=== PATIENT | female | born 1950 | race Caucasian/White ===

== ENCOUNTER → 2017-07-29 16:09 | Outpatient (CLI) | payer MEDICARE, OTHER, SELFPAY ==
--- NOTE | 2017-07-29 16:12 | MRI_ITS ---
STUDY: MRI LEFT REARFOOT WITHOUT CONTRAST REASON FOR EXAM: Female, 67 years old. Heel spur, plantar fasciitis. No known injury. Pain in the plantar aspect of the heel since January 2017 TECHNIQUE: Standardized fat and water weighted pulse sequences were obtained in all 3 orthogonal planes. COMPARISON: None. FINDINGS: Normal subcutis adipose space. Normal posterior tibialis tendon. Normal flexor digitorum longus tendon. Normal flexor hallucis longus tendon. Normal peroneus longus and brevis tendons. Normal tibialis anterior tendon. Normal extensor hallucis longus tendon. Normal extensor digitorum longus tendons. Normal Achilles tendon and teno-osseous insertion. There is thickening and soft tissue edema surrounding the central cord of the plantar fascia at the calcaneal insertion, consistent with plantar fasciitis (sagittal STIR series 4 image 9). No tear is noted. There is a plantar calcaneal spur with cancellous marrow edema consistent with a marrow stress phenomena. Normal intrinsic muscles of the rearfoot. Normal distal tibiofibular syndesmotic ligamentous complex. Normal lateral ligamentous complex. Normal subtalar ligaments and sinus tarsi. Normal deltoid ligamentous complexes. Normal plantar calcaneonavicular (spring) ligament. Normal tibiotalar articulation. Normal talar dome. Normal subtalar articulations. Normal talonavicular articulation. Normal calcaneocuboid articulation. Normal navicular-cuneiform articulations. MRI/Lower Ext/No Jt/w/o IMPRESSION: Findings are consistent with plantar fasciitis involving the central cord of the plantar fascia with associated reactive bone marrow edema in the plantar aspect of the calcaneus and heel spur Electronically Signed: Rodrigo Valenzuela MD, FACR at 7:55 EST , Service support ,
== END ==
PROVIDERS: Family Provider Family Medicine; PCP Family Medicine; Visit Provider Podiatrist
DX: M72.2 Plantar fascial fibromatosis (principal); M77.32 Calcaneal spur, left foot; M79.672 Pain in left foot
CPT/HCPCS: 73718

== ENCOUNTER → 2018-02-18 10:58 | Outpatient (CLI) | payer MEDICARE, OTHER, SELFPAY ==
[2018-02-18 12:04] LABS: Absolute Lymphocyte Count 1.42 X10^3/ul (0.83-4.51); Absolute Neutrophil Count 2.5 X10^3/uL (2.0-7.7); Basophil# 0.02 X10^3/uL; Basophil% 0.4 % (0-1); Eosinophils% 2.2 % (0-5); Hematocrit 43.8 % (37-47); Hemoglobin 15.3 g/dl (12.0-15.0); Lymphocyte # 1.42 X10^3/ul (4.0); Lymphocyte % 31.8 % (19-41); Mean Corp Hgb Conc 34.9 g/gl (32-36); Mean Corpuscular Hgb 30.8 pg (27.0-32.0); Mean Corpuscular Volume 88.1 fL (81-99); Mean Platelet Vol. 9.9 fl (6.2-12.0); Monocyte# 0.47 X10^3/uL; Monocyte% 10.5 % (0-10); Neutrophil # 2.45 X10^3/uL (2.7-7.7); Neutrophil % 54.9 % (47-70); Platelet Count 234 K/mm3 (150-450); RBC Distribution Width CV 12.3 % (11.6-14.6); RBC Distribution Width SD 39.2 fl (35.1-43.9); Red Blood Count 4.97 M/mm3 (4.2-5.4); White Blood Count 4.5 K/mm3 (4.4-11.0)
[2018-02-18 12:07] LABS: POSITIVE COUNT NO; POSITIVE DIFFERENTIAL NO; POSITIVE MORPHOLOGY NO
[2018-02-18 12:51] LABS: ALB/GLOB Ratio 1.2 RATIO (0.9-2.4); AST(SGOT) 23 U/L (15-37); Alanine Aminotransfer ALT/SGPT 28 U/L (13-56); Albumin, Serum 3.9 g/dL (3.2-5.0); Alkaline Phosphatase 72 U/L (45-117); Anion Gap 9 (5-15); BUN 15 mg/dL (7-18); BUN/Creat Ratio 24.1 RATIO (10-20); Calcium,Total 8.8 mg/dL (8.5-10.1); Chloride 108 mmol/L (98-107); Cholesterol 151 mg/dL (200); Creatinine, Serum 0.62 mg/dL (0.55-1.02); EST Glomerular Filtration Rate 101 mL/min (>60); Est Glom Filt Rate - Afr Amer 122 mL/min (>60); Globulin 3.2 g/dL (2.2-4.2); Glucose 87 mg/dL (74-106); High Density Lipoprotein 68 mg/dL; Potassium 3.9 mmol/L (3.5-5.1); Protein, Total 7.1 g/dL (6.4-8.2); Sodium Level 142 mmol/L (136-145); Thyroid Stim Hormone (TSH) 2.67 uIU/mL (0.358-3.74); Triglycerides 96 mg/dL; Very Low Density Lipoprotein 19 mg/dL (5-40)
== END ==
LOC: LAB.FUTURE 08-22 00:32 → BFHLAB 02-26 11:45
PROVIDERS: Family Provider Family Medicine; PCP Family Medicine; Visit Provider Family Medicine
DX: E78.5 Hyperlipidemia, unspecified (principal); E04.1 Nontoxic single thyroid nodule; Z51.81 Encounter for therapeutic drug level monitoring; Z79.899 Other long term (current) drug therapy
CPT/HCPCS: 36415; 80053; 80061; 84443; 85025

== ENCOUNTER → 2018-03-04 07:49 | Outpatient (CLI) | payer MEDICARE, OTHER, SELFPAY | PROVIDERS: Family Provider Family Medicine; PCP Family Medicine; Visit Provider Family Medicine | DX: Z12.31 Encounter for screening mammogram for malignant neoplasm of breast (principal) | CPT/HCPCS: 77063; 77067 ==

== ENCOUNTER → 2019-03-14 12:22 | Outpatient (CLI) | payer MEDICARE, OTHER, SELFPAY ==
[2019-03-14 12:35] LABS: Absolute Lymphocyte Count 1.45 X10^3/uL (0.83-4.51); Absolute Neutrophil Count 2.6 X10^3/uL (2.0-7.7); Basophil# 0.02 X10^3/uL; Basophil% 0.4 % (0-1); Eosinophil# 0.12 X10^3/uL; Eosinophils% 2.6 % (0-5); Hematocrit 43.8 % (37-47); Hemoglobin 14.8 g/dL (12.0-15.0); Lymphocyte # 1.45 X10^3/ul (4.0); Lymphocyte % 31.2 % (19-41); Mean Corp Hgb Conc 33.8 g/dL (32-36); Mean Corpuscular Hgb 30.5 pg (27.0-32.0); Mean Corpuscular Volume 90.1 fL (81-99); Mean Platelet Vol. 9.8 fl (6.2-12.0); Monocyte# 0.47 X10^3/uL; Monocyte% 10.1 % (0-10); NRBC Flagged by Analyzer 0 % (0-5); Neutrophil # 2.58 X10^3/uL (2.7-7.7); Neutrophil % 55.5 % (47-70); Platelet Count 195 K/mm3 (150-450); RBC Distribution Width CV 12.2 % (11.6-14.6); RBC Distribution Width SD 39.7 fl (35.1-43.9); Red Blood Count 4.86 M/mm3 (4.2-5.4); White Blood Count 4.7 K/mm3 (4.4-11.0)
[2019-03-14 13:09] LABS: ALB/GLOB Ratio 1.1 RATIO (0.9-2.4); AST(SGOT) 20 U/L (15-37); Alanine Aminotransfer ALT/SGPT 24 U/L (13-56); Albumin, Serum 3.7 g/dL (3.2-5.0); Alkaline Phosphatase 75 U/L (45-117); Anion Gap 6 (5-15); BUN 14 mg/dL (7-18); BUN/Creat Ratio 22.3 RATIO (10-20); Calcium,Total 8.6 mg/dL (8.5-10.1); Chloride 110 mmol/L (98-107); Cholesterol 162 mg/dL (200); Creatinine, Serum 0.63 mg/dL (0.55-1.02); EST Glomerular Filtration Rate 99 mL/min (>60); Est Glom Filt Rate - Afr Amer 120 mL/min (>60); Globulin 3.4 g/dL (2.2-4.2); Glucose 89 mg/dL (74-106); High Density Lipoprotein 69 mg/dL; Potassium 3.9 mmol/L (3.5-5.1); Protein, Total 7.1 g/dL (6.4-8.2); Sodium Level 142 mmol/L (136-145); Thyroid Stim Hormone (TSH) 2.51 uIU/mL (0.358-3.74); Triglycerides 84 mg/dL; Very Low Density Lipoprotein 17 mg/dL (5-40)
== END ==
PROVIDERS: PCP Family Medicine; Visit Provider Family Medicine
DX: Z00.00 Encounter for general adult medical examination without abnormal findings (principal)
CPT/HCPCS: 36415; 80053; 80061; 84443; 85025

== ENCOUNTER → 2019-09-07 08:03 | Outpatient (CLI) | payer MEDICARE, OTHER, SELFPAY ==
--- NOTE | 2019-09-07 08:09 | CT_ITS ---
STUDY: CT FACIAL BONES WITHOUT CONTRAST REASON FOR EXAM: Female, 69 years old. Submandibular swelling on right x 1 week, recent dental crowns placed on right, currently on antibiotics. RADIATION DOSAGE (If Supplied By Facility): CTDIvol = ( 29.38 ) mGy, DLP = ( 664.99 ) mGycm TECHNIQUE: The patient was scanned in a multi detector CT scanner. Sagittal and coronal images were reconstructed. Individualized dose optimization techniques were used for this CT. COMPARISON: None. FINDINGS: Normal soft tissue structures. Normal orbital vanegas and orbital contents. Normal nasal bones and anterior nasal spine. There is a 1.2 cm x 1.4 cm lytic lesion in the region of the right ramus of the mandible at the site of the molar. There is cortical break laterally. Mild degree of soft tissue swelling overlying the right masseter muscle. Normal visualized paranasal sinuses. CT/Sinus/Facial Bone IMPRESSION: 1.2 cm x 1.4 cm lytic lesion in the region of the right ramus of the mandible at the site of the molar. Cortical break laterally. Mild degree of overlying soft tissue swelling of the right masseter muscle. Electronically Signed: Joseph Yeung, at 9:17 EDT , Service support ,
== END ==
PROVIDERS: PCP Family Medicine; Referring Provider Dentist Oral and Maxillofacial Surgery; Visit Provider Dentist Oral and Maxillofacial Surgery
DX: R22.0 Localized swelling, mass and lump, head (principal)
CPT/HCPCS: 70486

== ENCOUNTER → 2020-03-19 09:05 | Outpatient (CLI) | payer MEDICARE, OTHER, SELFPAY ==
[2020-03-19 12:13] LABS: Absolute Lymphocyte Count 1.57 X10^3/uL (0.83-4.51); Absolute Neutrophil Count 2.2 X10^3/uL (2.0-7.7); Basophil# 0.03 X10^3/uL; Basophil% 0.7 % (0-1); Eosinophil# 0.11 X10^3/uL; Eosinophils% 2.6 % (0-5); Hematocrit 45.8 % (37-47); Hemoglobin 15.3 g/dL (12.0-15.0); Lymphocyte # 1.57 X10^3/ul (4.0); Lymphocyte % 36.9 % (19-41); Mean Corp Hgb Conc 33.4 g/dL (32-36); Mean Corpuscular Hgb 31.2 pg (27.0-32.0); Mean Corpuscular Volume 93.5 fL (81-99); Mean Platelet Vol. 9.9 fl (6.2-12.0); Monocyte# 0.38 X10^3/uL; Monocyte% 8.9 % (0-10); NRBC Flagged by Analyzer 0 % (0-5); Neutrophil # 2.16 X10^3/uL (2.7-7.7); Neutrophil % 50.7 % (47-70); Platelet Count 197 K/mm3 (150-450); RBC Distribution Width CV 11.9 % (11.6-14.6); RBC Distribution Width SD 40.7 fl (35.1-43.9); White Blood Count 4.3 K/mm3 (4.4-11.0)
[2020-03-19 12:38] LABS: ALB/GLOB Ratio 1.3 RATIO (0.9-2.4); AST(SGOT) 26 U/L (15-37); Alanine Aminotransfer ALT/SGPT 26 U/L (13-56); Albumin, Serum 3.9 g/dL (3.2-5.0); Alkaline Phosphatase 74 U/L (45-117); Anion Gap 7 (5-15); BUN 14 mg/dL (7-18); BUN/Creat Ratio 21.7 RATIO (10-20); Calcium,Total 8.8 mg/dL (8.5-10.1); Chloride 109 mmol/L (98-107); Cholesterol 160 mg/dL (200); Creatinine, Serum 0.64 mg/dL (0.55-1.02); EST Glomerular Filtration Rate 96 mL/min (>60); Est Glom Filt Rate - Afr Amer 116 mL/min (>60); Globulin 3.1 g/dL (2.2-4.2); Glucose 82 mg/dL (74-106); High Density Lipoprotein 65 mg/dL; Potassium 3.9 mmol/L (3.5-5.1); Sodium Level 143 mmol/L (136-145); Thyroid Stim Hormone (TSH) 3.59 uIU/mL (0.358-3.74); Triglycerides 115 mg/dL; Very Low Density Lipoprotein 23 mg/dL (5-40)
== END ==
PROVIDERS: PCP Family Medicine; Visit Provider Family Medicine
DX: Z00.00 Encounter for general adult medical examination without abnormal findings (principal); E78.5 Hyperlipidemia, unspecified; E04.1 Nontoxic single thyroid nodule
CPT/HCPCS: 36415; 80053; 80061; 84443; 85025

== ENCOUNTER → 2020-04-13 08:17 | Outpatient (CLI) | payer MEDICARE, OTHER, SELFPAY ==
--- NOTE | 2020-04-13 08:21 | BI_ITS ---
MAMMOGRAPHY - BILATERAL SCREENING REASON FOR EXAM: Female, 69 years old. Routine annual screening examination. PERTINENT HISTORY: Non-contributory. TECHNIQUE: Digital bilateral breast tate (3D mammographic acquisition) in the CC and MLO projections. 2-D mediolateral oblique (MLO) and craniocaudad (CC) views of both breasts were obtained. CAD: Full Field Digital Mammography with Computer Added Detection was performed. COMPARISON: Comparison is made with prior examination is 03/04/2018 and 03/03/2017. FINDINGS: Breast Composition: The breasts are heterogeneously dense, which may obscure small masses. There are no dominant masses or suspicious calcifications. No other significant abnormalities are identified. There has been no significant change since the prior study. BI/SCREEN MAMM (CAD) W/TATE BILAT IMPRESSION: Stable bilateral screening mammogram. Yearly follow-up mammogram recommended. (A) ASSESSMENT CATEGORY: BIRADS Category 1: Negative. A letter regarding these results will be sent to the patient by the facility within 30 days. Approximately 10% of breast cancers are not detected by mammography. A normal mammogram should not delay biopsy of a clinically suspicious abnormality. [id number] Electronically Signed: Joseph Yeung, at 8:55 EDT , Service support ,
== END ==
PROVIDERS: PCP Family Medicine; Referring Provider Family Medicine; Visit Provider Family Medicine
DX: Z12.31 Encounter for screening mammogram for malignant neoplasm of breast (principal)
CPT/HCPCS: 77063; 77067

== ENCOUNTER 2020-08-21 09:33 | Outpatient (RCR) | payer MEDICARE, OTHER, SELFPAY | END 2020-08-21 23:59 | LOC: IMMUN 09:33 | PROVIDERS: PCP Family Medicine; Visit Provider Family Medicine | DX: Z23 Encounter for immunization (principal) | CPT/HCPCS: 0011A; 0012A ==

== ENCOUNTER → 2021-04-03 | Outpatient (CLI) | payer MEDICARE, OTHER, SELFPAY ==
--- NOTE | 2021-04-03 | BONBX_PTH ---
PATIENT: IDLIA MARTINEZ LOC: [facility] U#:[id number] AGE/SX: 70/F ROOM: RE04/03/[address]: Dr. Royce Magallon DDS : 1950 BED: DIS: 04/03/2021 SPEC #: [id number] RECD: 04/03/21 12:18 STATUS: DALIA SABRA #: [id number] FILOMENA: 04/03/21 00:[address]: Royce Magallon DEPT: SURGICAL PATHOLOGY RECD BY: Thelma Oglesby Tissues: Jaw, NOS Procedures: Decalcification bone/plaque Surgery Specimen Level V HEADER OPERATION: Bone biopsy PRE-OP DIAGNOSIS: Intraosseous bony lesion TISSUE SUBMITTED: Intraosseous bony lesion MICROSCOPIC DIAGNOSIS Intraosseous bony lesion, bone biopsy: Consistent with plasma cell neoplasm, kappa restricted. See comment. AM:jasper 04/04/2021 GROSS DIAGNOSIS Immunohistochemistry ([id number]) supports the above diagnosis. Clinical correlation is suggested. Case has been reviewed in consultation with Dr. Sanchez who concurs with the above diagnosis. IDC:SJ MICROSCOPIC DESCRIPTION Slides are reviewed. GROSS DESCRIPTION Received is one container labeled with the patient's name and not further designated. The specimen consists of a piece of garnica mucosal tissue measuring 0.5 x 0.3 x 0.2 cm. The entire specimen is submitted in one cassette after decalcification. / MELANIA:jasper 04/03/21 TC:0 CPT: 34907, 37102
--- NOTE | 2021-04-03 | IMM_PTH ---
PATIENT: DILIA MARTINEZ LOC: [facility] U#:[id number] AGE/SX: 70/F ROOM: RE04/03/[address]: Dr. Royce Magallon DDS : 1950 BED: DIS: 04/03/2021 SPEC #: [id number] RECD: 04/04/21 13:27 STATUS: DALIA REDaniel #: [id number] FILOMENA: 04/03/21 00:[address]: Royce Magallon DEPT: IMMUNOHISTOCHEMISTRY RECD BY: Cherelle Miller Tissues: Mandible, NOS Procedures: BCL-2 (add) CD138 (add) CD20 (add) CD3 (add) CD43 (add) CD45 (add) CD5 (add) CD79A (add) KAPPA (add) LAMBDA (add) Pankeratin (initial) PHYSICIAN & INSTITUTION [place] [id number] SPECIMEN INFORMATION: Tissue Source: Intraosseous bony lesion Clinical Info: Intraosseous bony lesion Specimen Number: [id number] CPT code: 58807, 83088 x10 METHODOLOGY: Deparaffinized sections of prefer/formalin-fixed tissue or PAP/DQ stained slides are incubated with monoclonal/polyclonal antibodies/oligonucleotide probes. Localization is made via biotin free immunoperoxidase method. Appropriate controls are performed and reacted as expected. Results on target cell population are indicated in the following table: RESULTS: ANTIBODY / CLONE RESULT AE1-3 (AE1/AE3/PCK26) negative CD3 (PS1) negative CD5 (SP10) negative CD20 (L26) negative CD43 (L60) * CD45 (RP2/18) positive CD79a (11E3) positive CD138 (B-A38) positive BCL-2 (bcl-2/100/D5) positive [place] (polyclonal) positive Lambda (polyclonal) negative *?Small lymphocytes only. These tests were developed and their performance characteristics determined by [facility]. They may not have been cleared or approved by the U.S. Food and Drug Administration. The FDA has determined that such clearance or approval is not necessary. The above immunohistochemical/dualISH markers are ordered and reviewed by the Pathologist. INTERPRETATION: Intraosseous bony lesion, bone biopsy: Consistent with plasma cell neoplasm, kappa restricted. AM:jasper 04/07/2021
== END | disposition home or self-care (01) ==
LOC: LABSPEC 12:31
PROVIDERS: Referring Provider Dentist Oral and Maxillofacial Surgery; Visit Provider Dentist Oral and Maxillofacial Surgery
DX: M89.9 Disorder of bone, unspecified (principal)
CPT/HCPCS: 87070; 87075; 87205; 88307; 88311; 88341; 88342

== ENCOUNTER → 2021-04-28 08:44 | Outpatient (CLI) | payer MEDICARE, OTHER, SELFPAY ==
--- NOTE | 2021-04-28 09:15 | RAD_ITS ---
STUDY: X-RAY BONE SURVEY COMPLETE REASON FOR EXAM: Female, 70 years old. 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 COMPARISON: None. FINDINGS: No acute fracture. No acute dislocation. No acute cortical breakthrough. Osteopenia. Moderate/severe cervical, mild thoracic and moderate lumbar lumbar spine osteoarthritis. Moderate bilateral hip osteoarthritis. Mild sacroiliac joint arthrosis. Mild pubic symphysis arthrosis. Moderate bilateral knee osteoarthritis. Moderate bilateral acromioclavicular joint arthrosis. Mild/moderate bilateral first carpometacarpal joint arthrosis. Normal soft tissue structures. Constipation. COPD/hyperaeration. Left forearm tiny shrapnel. RAD/Bone Survey Comp(Axial&Append) IMPRESSION: No acute bone destruction Degenerative changes, as above Electronically Signed: Christophe Hassan DO at 11:12 EDT Tel , Service support ,
[2021-04-28 09:35] LABS: ALB/GLOB Ratio 1.1 RATIO (0.9-2.4); AST(SGOT) 35 U/L (15-37); Alanine Aminotransfer ALT/SGPT 31 U/L (13-56); Albumin, Serum 3.8 g/dL (3.2-5.0); Alkaline Phosphatase 71 U/L (45-117); Anion Gap 6 (5-15); BUN 15 mg/dL (7-18); Calcium,Total 8.7 mg/dL (8.5-10.1); Chloride 106 mmol/L (98-107); Creatinine, Serum 0.75 mg/dL (0.55-1.02); EST Glomerular Filtration Rate 81 mL/min (>60); Est Glom Filt Rate - Afr Amer 98 mL/min (>60); Globulin 3.5 g/dL (2.2-4.2); Glucose 98 mg/dL (74-106); LDH 196 U/L (84-246); Potassium 3.9 mmol/L (3.5-5.1); Protein, Total 7.3 g/dL (6.4-8.2); Sodium Level 140 mmol/L (136-145)
[2021-04-29 17:44] LABS: Beta-2-Microglobulin, S 2.3 mg/L (0.6-2.4)
[2021-04-30 17:02] LABS: PROEL- A/G Ratio 1.2 (0.7-1.7); PROEL- Albumin 3.7 g/dL (2.9-4.4); PROEL- Alpha-1 Globulin 0.2 g/dL (0.0-0.4); PROEL- Alpha-2 Globulin 0.7 g/dL (0.4-1.0); PROEL- Beta Globulin 1.1 g/dL (0.7-1.3); PROEL- TOTAL PROTEIN 6.7 g/dL (6.0-8.5); PROELU- Albumin, Urine 62.6 % (.); PROELU- Alpha-1-Globulin,Ur 2.7 % (.); PROELU- Alpha-2-Globulin,Ur 10.7 % (.); PROELU- Beta Globulin, Ur 15.2 % (.); PROELU- Gamma Globulin, Ur 8.8 % (.); Total Protein, Ur 32.3 mg/dL (Not Estab.)
== END ==
PROVIDERS: PCP Family Medicine; Referring Provider Family Medicine; Visit Provider Family Medicine
DX: C90.30 Solitary plasmacytoma not having achieved remission (principal)
CPT/HCPCS: 36415; 77075; 80053; 82232; 83615; 84165; 84166

== ENCOUNTER 2021-07-30 07:14 | Day surgery (SDC) | payer MEDICARE, OTHER, SELFPAY ==
--- NOTE | 2021-07-30 | LES_PTH ---
PATIENT: DILIA MARTINEZ LOC: [facility] [place] U#:[id number] AGE/SX: 71/F ROOM: RE07/30/[address]: Dr. Royce Magallon, MIN : 1950 BED: DIS: 07/30/2021 SPEC #: [id number] RECD: 07/30/21 12:29 STATUS: DALIA SABRA #: [id number] FILOMENA: 07/30/21 00:[address]: Royce Magallon DEPT: SURGICAL PATHOLOGY RECD BY: Pj Shah ENTERED: 07/30/21 12:30 SP TYPE: Lesion OTHR DR: Dr. Eve Ritchie, DO Tissues: Mandible, NOS Procedures: Surgery Specimen Level IV HEADER OPERATION: Excision, plasma cell lesion, tumor mandible PRE-OP DIAGNOSIS: Tumor excision TISSUE SUBMITTED: Mandibular lesion MICROSCOPIC DIAGNOSIS Mandibular lesion, biopsy: Consistent with plasma cell neoplasm. See comment. AM:jasper 07/31/2021 COMMENT Immunohistochemistry ([id number]) supports the above diagnosis. Monoclonality on this biopsy could not be determined. Reference is made to the previous lesion within bone from same site ([id number]) in which a kappa restricted plasma cell neoplasm was identified. Clinical correlation is suggested. Case has been reviewed in consultation with Dr. Sanchez who concurs with the above diagnosis. IDC:SJ MICROSCOPIC DESCRIPTION Slides are reviewed. GROSS DESCRIPTION Received in fixative is one container labeled with the patient's name and designated mandibular lesion. The specimen consists of multiple irregular fragments of garnica tissue that in aggregate measure 1.5 x 0.8 x 0.2 cm. The specimen is totally submitted in one cassette. / AM:jasper 07/30/2021 TC:0 CPT: 54093
--- NOTE | 2021-07-30 | IMM_PTH ---
PATIENT: DILIA MARTINEZ [place] [facility] [place][id number] AGE/SX: 71/F ROOM: RE07/30/[address]: Dr. Royce Magallon, MIN : 1950 BED: DIS: 07/30/2021 SPEC #: [id number] RECD: 07/31/21 14:53 STATUS: SOUDunia REQ #: [id number] FILOMENA: 07/30/21 00:[address]: Royce Magallon DEPT: IMMUNOHISTOCHEMISTRY RECD BY: Cherelle Miller ENTERED: 07/31/21 14:55 SP TYPE: IMMUNO OTHR DR: Dr. Eve Ritchie, DO Tissues: Mandible, NOS Procedures: CD10 (add) CD138 (add) CD20 (add) CD3 (add) CD45 (add) CD5 (add) CD79A (add) KAPPA (add) LAMBDA (add) MACRO (add) MPO (add) Pankeratin (initial) PHYSICIAN & [address] [address] SPECIMEN INFORMATION: Tissue Source: Mandibular lesion Clinical Info: Mandibular lesion Specimen Number: [id number] CPT code: 69995, 15796 x11 METHODOLOGY: Deparaffinized sections of prefer/formalin-fixed tissue or PAP/DQ stained slides are incubated with monoclonal/polyclonal antibodies/oligonucleotide probes. Localization is made via biotin free immunoperoxidase method. Appropriate controls are performed and reacted as expected. Results on target cell population are indicated in the following table: RESULTS: ANTIBODY / CLONE RESULT AE1-3 (AE1/AE3/PCK26) negative CD3 (PS1) positive CD5 (SP10) positive CD20 (L26) negative CD45 (RP2/18) positive CD79a (11E3) positive CD138 (B-A38) positive [place] (polyclonal) * Lambda (polyclonal) * CD10 (56C6) negative MPO (polyclonal) positive Macro (HAM-56) positive *Indeterminate. These tests were developed and their performance characteristics determined by [facility]. They may not have been cleared or approved by the U.S. Food and Drug Administration. The FDA has determined that such clearance or approval is not necessary. The above immunohistochemical/dualISH markers are ordered and reviewed by the Pathologist. INTERPRETATION: Mandibular lesion, biopsy: Consistent with plasma cell neoplasm Case has been reviewed in consultation with Dr. Sanchez who concurs with the above diagnosis. IDC:MELANIA AM:audie 08/01/21
[2021-07-30 07:40] VITALS: BP 148/86; PULSE 94; RESP 18; TEMP 37.2; O2SAT 99; BMI 21.2
[2021-07-30] MEDS: Lactated Ringers 1,000 ML 15 ML IV (07:45)
--- NOTE | 2021-07-30 08:56 | PCM.DC ---
Discharge Instructions Follow Up Care Test Results: Test results from this visit will be discussed in further detail at your follow-up appointment, if applicable. Discharge Plan Admission Attending Provider: Royce Magallon Primary Care Provider: Eve Ritchie Discharge Orders/Prescriptions Prescriptions: No Action Centrum Silver Tablet 1 tab PO DAILY RF: 0 rosuvastatin 5 mg tablet 5 mg PO QHS RF: 0 naproxen sodium [Aleve] 220 mg Capsule 220 mg PO Q8H PRN (Reason: Pain) RF: 0 Referrals / Follow Up: Eve Ritchie DO [Primary Care Provider] - Disposition Disposition (needs filled in before D/C Order can be placed): Home, Self Care
[2021-07-30] MEDS: Bupivacaine Mpf 0.5% 30 ML VIAL (09:08)
[2021-07-30] MEDS: Lidocaine 1%/Epi 1:200 (30ml) 30 ML AMPUL (09:08)
[2021-07-30 09:45] VITALS: BP 125/63; BP 148/86; PULSE 68; RESP 16; TEMP 36.3; O2SAT 96
[2021-07-30 10:00] VITALS: BP 120/59; BP 148/86; PULSE 70; RESP 16; O2SAT 97
--- NOTE | 2021-07-30 10:12 | PCM.OPRPT ---
Report of Operation Date of Procedure: 07/30/21 Pre-Operative Diagnosis: Mandibular tumor Post-Operative Diagnosis: Same Surgery/Procedure Performed:: Surgical resection of right mandibular tumor Description of Surgical Findings:: Soft Tissue lesion located intra-osseously Surgeon: Naun Type of Anesthesia: General Specimen's removed: Lesion Mandible Drains: None Estimated Blood Loss (mL): Less than Description of Procedure: Patient was seen in the preop holding area and the potential risk and complications were given including but not limited to pain, infection, injury to neurovascular structures possible need for revision surgeries and the patient agreed. Patient was then taken to the anesthesia suite and operating room where she was placed into the supine position on the operating room table. Appropriate anesthetic monitors were then placed. Patient was then given IV general anesthesia and she was intubated via the oral endotracheal route without complication. At this time a solution of Marcaine 0.25% and lidocaine 1% mixed 50-50 was injected into the right posterior mandible to block the inferior alveolar nerve. Throat pack was then placed. At this time incision from nursing home up the ascending ramus carried anteriorly to approximately the first molar was made first through mucosa and then dissected down subperiosteally to the lateral border of the mandible. Subperiosteal reflection was continued to the posterior ramus and to the inferior border of the mandible. Bony ostectomy was performed to reach the lesion in question. At this time the lesion was curetted from the bone and there was no apparent injury to the inferior alveolar nerve that I noticed the site was irrigated then suturing was with 3-0 Chromic Gut suture in a running fashion. This essentially ended the operation the throat pack was removed the throat was suctioned free of all debris and the patient was awakened and extubated in the operating room. She was taken to the postanesthesia care unit in stable condition breathing spontaneously. All sponge and needle counts were correct.
[2021-07-30 10:15] VITALS: BP 131/63; BP 148/86; PULSE 75; RESP 16; O2SAT 96
[2021-07-30 10:25] VITALS: BP 130/70; BP 148/86; PULSE 70; RESP 16; TEMP 36.5; O2SAT 98
== END 2021-07-30 23:59 | disposition home or self-care (01) ==
LOC: SDC 07:17 → AC 07:18
PROVIDERS: PCP Family Medicine; Referring Provider Family Medicine; Visit Provider Dentist Oral and Maxillofacial Surgery
PROC: (CPT 21044; principal; 2021-07-30 08:45)
DX: C90.30 Solitary plasmacytoma not having achieved remission (principal); E78.00 Pure hypercholesterolemia, unspecified; M19.90 Unspecified osteoarthritis, unspecified site
CPT/HCPCS: 21044; 00190; 88305; 88341; 88342; J7120; J0330; J2405

== ENCOUNTER → 2021-10-20 | Outpatient (CLI) | payer MEDICARE, OTHER, SELFPAY ==
--- NOTE | 2021-10-20 09:37 | MRI_ITS ---
ACR Level 3 findings have been noted. An addendum which confirms receipt of the report will follow. STUDY: MRI LUMBAR SPINE WITHOUT CONTRAST REASON FOR EXAM: Female, 71 years old. LUMBAR BACK PAIN, MYELOPATHY TECHNIQUE: Standardized fat and water weighted pulse sequences were obtained in the sagittal and axial planes. COMPARISON: None FINDINGS: Normal lumbar lordosis. There is a levoscoliosis of the lumbar spine. Normal conus medullaris that terminates at the L1 level. T12-L1: Normal endplates. Mild disc desiccation. Normal disc height and morphology. Normal bilateral facet joints. Normal central canal and bilateral lateral recesses. Normal bilateral intervertebral neural foramina. L1-2: Normal endplates. Diffuse disc desiccation and mild disc space narrowing with minimal posterior annular bulging. Small Schmorl''s node. Normal bilateral facet joints. Normal central canal and bilateral lateral recesses. Normal bilateral intervertebral neural foramina. L2-3: Moderate disc space narrowing and endplate degenerative changes with a diffuse disc osteophyte complex. Retrolisthesis of L2 on L3 of 3 mm. Significant facet joint and ligamenta flava hypertrophy resulting in moderate central canal stenosis. Normal bilateral intervertebral neural foramina. L3-4: Normal endplates. Diffuse disc desiccation. Normal disc height and morphology. Mild to moderate facet joint and ligamenta flava hypertrophy contribute to mild central canal stenosis. Normal bilateral lateral recesses. Normal bilateral intervertebral neural foramina. L4-5: Mild anterior endplate spurring. Anterolisthesis of L4 and L5 of 3 mm. Diffuse disc desiccation and mild disc space narrowing with annular bulging combined with severe facet joint and ligament of flava hypertrophy resulting in severe central canal stenosis with only a slitlike opening resulting in near complete spinal block. Normal bilateral facet joints. Normal central canal and bilateral lateral recesses. Normal bilateral intervertebral neural foramina. L5-S1: Normal endplates. Diffuse disc desiccation. Normal disc height and morphology. Moderate to significant left and moderate right facet joint hypertrophy. Normal central canal and bilateral lateral recesses. Normal bilateral intervertebral neural foramina. Normal visualized sacral ala. There is mild paraspinal muscular atrophy. MRI/Spine Lumbar (Routine) IMPRESSION: 1. Multilevel degenerative changes, as described above. 2. Diffuse disc desiccation and mild disc space narrowing with annular bulging combined with severe facet joint and ligament of flava hypertrophy resulting in severe central canal stenosis with only a slitlike opening resulting in near complete spinal block. 3. Moderate central canal stenosis at L2-L3. Electronically Signed: Jamel Mendoza MD at 15:59 EDT ,
== END | disposition home or self-care (01) ==
LOC: MRI 09:28
PROVIDERS: PCP Family Medicine; Visit Provider Family Medicine
DX: M47.816 Spondylosis without myelopathy or radiculopathy, lumbar region (principal)
CPT/HCPCS: 72148

== ENCOUNTER → 2021-12-23 | Outpatient (CLI) | payer MEDICARE, OTHER, SELFPAY ==
--- NOTE | 2021-12-23 13:19 | BI_ITS ---
MAMMOGRAPHY - BILATERAL SCREENING REASON FOR EXAM: Female, 71 years old. Routine annual screening examination. PERTINENT HISTORY: Non-contributory. TECHNIQUE: Digital bilateral breast tate (3D mammographic acquisition) in the CC and MLO projections. 2-D mediolateral oblique (MLO) and craniocaudad (CC) views of both breasts were obtained. CAD: Full Field Digital Mammography with Computer Added Detection was performed. COMPARISON: Comparison is made with prior study dated 04/13/2020 and 03/04/2018. FINDINGS: Breast Composition: The breasts are heterogeneously dense, which may obscure small masses. There are no dominant masses or suspicious calcifications. No other significant abnormalities are identified. There has been no significant change since the prior study. BI/SCRN MAMM (CAD)W/TATE BILAT IMPRESSION: Stable bilateral screening mammogram. Yearly follow-up mammogram recommended. (A) ASSESSMENT CATEGORY: BIRADS Category 1: Negative. A letter regarding these results will be sent to the patient by the facility within 30 days. Approximately 10% of breast cancers are not detected by mammography. A normal mammogram should not delay biopsy of a clinically suspicious abnormality. [id number] Electronically Signed: Joseph Yeung MD at 14:06 EDT ,
--- NOTE | 2021-12-23 13:36 | BD_ITS ---
STUDY: DUAL ENERGY X-RAY ABSORPTIOMETRY / DXA REASON FOR EXAM: Female, 71 years old. M85.89 TECHNIQUE: Bone Mineral Density (BMD) measurements of lumbar spine and bilateral hips were obtained. COMPARISON: 11/06/2008 FINDINGS: Lumbar Spine (L1-L4): g/cm2 (1.102) / T-score (0.5) / Z-score (2.8) Findings are suggestive of normal bone density with a low fracture risk. Left Femur Total: g/cm2 (0.791) / T-score (-1.2) / Z-score (0.5) Left Femoral Neck: g/cm2 (0.706) / T-score (-1.3) / Z-score (0.7) Right Femur Total: g/cm2 (0.858) / T-score (-0.7) / Z-score (1.0) Right Femoral Neck: g/cm2 (0.778) / T-score (-0.6) / Z-score (1.4) BD/Dexa Bone Density Study IMPRESSION: The patient is considered osteopenic as outlined below according to World Benjy Organization (WHO) criteria with a moderate fracture risk. There has been worsening of bone density since the previous examination. Reference Information: The T-score is the number of standard deviations above or below the standard which is normal for young adults at their peak bone mineral density. The World Health Organization (WHO) interprets the T-scores as follows: Above -1 Normal bone density Between -1 and -2.5 Osteopenia Equal to / or below -2.5 Osteoporosis As a practical clinical guideline, osteopenia may be graded as follows: Mild -1 through -1.5 Moderate -1.6 through -2.0 Severe -2.1 through -2.4 The Z-score is the number of standard deviations above or below age-matched controls. A Z-score of less than -1.5 would be considered abnormal. References: 1. NIH Osteoporosis and Related Bone Diseases www osteo.org 2. International Society for Clinical Densitometry www iscd.org 3. National Osteoporosis Foundation www nof.org Electronically Signed: Cisco Garcia MD at 16:56 EDT ,
== END | disposition home or self-care (01) ==
LOC: OPBD 13:16
PROVIDERS: PCP Family Medicine; Visit Provider Student in an Organized Health Care Education/Training Program
DX: M85.89 Other specified disorders of bone density and structure, multiple sites (principal); Z12.31 Encounter for screening mammogram for malignant neoplasm of breast
CPT/HCPCS: 77063; 77067; 77080

== ENCOUNTER → 2022-03-03 | Outpatient (CLI) | payer MEDICARE, OTHER, SELFPAY ==
--- NOTE | 2022-03-03 08:33 | EKG12_ITS ---
Test Reason : PREOP Blood Pressure : / mmHG Vent. Rate : 086 BPM Atrial Rate : 086 BPM P-R Int : 126 ms QRS Dur : 106 ms QT Int : 396 ms P-R-T Axes : 073 -39 089 degrees QTc Int : 473 ms Normal sinus rhythm Left axis deviation Incomplete left bundle branch block Abnormal ECG Confirmed by KAREEN RILEY, CORBIN ([id number]), magazine editor DIOR PAIZ ([id number]) on 03/05/2022 9:36:04 AM Referred By: YOKASTA Confirmed By:CORBIN MATHUR MD
--- NOTE | 2022-03-03 08:43 | RAD_ITS ---
STUDY: X-RAY CHEST REASON FOR EXAM: Female, 71 years old. Preop for pelvic surgery TECHNIQUE: PA and lateral views of the chest. COMPARISON: None. FINDINGS: Lungs are hyper expanded without a superimposed acute pulmonary process. Normal size heart. Normal mediastinum and [place]. Normal visualized pulmonary arteries. Normal visualized aortic arch and descending thoracic aorta. Normal visualized thoracic spine. Normal visualized ribs, clavicles, and shoulders. There is no demonstrated abnormality of the visualized soft tissue structures of the upper abdomen. RAD/Chest PA and Lateral IMPRESSION: Hyperexpanded lungs without a superimposed acute pulmonary process Electronically Signed: Bert Melo MD at 9:10 EDT ,
[2022-03-03 10:24] LABS: Absolute Lymphocyte Count 1.33 X10^3/uL (0.83-4.51); Absolute Neutrophil Count 2.1 X10^3/uL (2.0-7.7); Basophil# 0.03 X10^3/uL; Basophil% 0.8 % (0-1); Eosinophil# 0.07 X10^3/uL; Eosinophils% 1.8 % (0-5); Hematocrit 45.5 % (37-47); Hemoglobin 15.8 g/dL (12.0-15.0); Lymphocyte # 1.33 X10^3/ul (0.83-4.51); Lymphocyte % 33.8 % (19-41); Mean Corp Hgb Conc 34.7 g/dL (32-36); Mean Corpuscular Hgb 32.3 pg (27.0-32.0); Mean Platelet Vol. 9.7 fl (6.2-12.0); Monocyte# 0.41 X10^3/uL; Monocyte% 10.4 % (0-10); NRBC Flagged by Analyzer 0 % (0-5); Neutrophil # 2.09 X10^3/uL (2.7-7.7); Neutrophil % 53.2 % (47-70); Platelet Count 233 K/mm3 (150-450); RBC Distribution Width CV 12.1 % (11.6-14.6); RBC Distribution Width SD 41.4 fl (35.1-43.9); Red Blood Count 4.89 M/mm3 (4.2-5.4); White Blood Count 3.9 K/mm3 (4.4-11.0)
[2022-03-03 10:34] LABS: Prothrombin Time (Protime)PT. 13.1 SECONDS (11.7-14.9)
[2022-03-03 10:35] LABS: Partial Thromboplast Time 27.4 Seconds (24.1-36.2)
[2022-03-03 10:45] LABS: Anion Gap 5 (5-15); BUN 13 mg/dL (7-18); BUN/Creat Ratio 19.7 RATIO (10-20); Calcium,Total 9.4 mg/dL (8.5-10.1); Chloride 105 mmol/L (98-107); Creatinine, Serum 0.66 mg/dL (0.55-1.02); EST Glomerular Filtration Rate 93 mL/min (>60); Est Glom Filt Rate - Afr Amer 113 mL/min (>60); Glucose 92 mg/dL (74-106); Potassium 4.3 mmol/L (3.5-5.1); Sodium Level 141 mmol/L (136-145)
== END | disposition home or self-care (01) ==
PROVIDERS: PCP Family Medicine; Visit Provider Physician Assistant Surgical
DX: Z01.818 Encounter for other preprocedural examination (principal); Z01.810 Encounter for preprocedural cardiovascular examination; Z01.811 Encounter for preprocedural respiratory examination
CPT/HCPCS: 36415; 71046; 80048; 85025; 85610; 85730; 93005

== ENCOUNTER → 2022-05-04 | Outpatient (CLI) | payer MEDICARE, OTHER, SELFPAY ==
[2022-05-04 10:09] LABS: Cholesterol 170 mg/dL (200); High Density Lipoprotein 68 mg/dL; Triglycerides 127 mg/dL; Very Low Density Lipoprotein 25 mg/dL (5-40)
== END | disposition home or self-care (01) ==
LOC: LAB 08:15
PROVIDERS: PCP Family Medicine; Referring Provider Family Medicine; Visit Provider Family Medicine
DX: E78.5 Hyperlipidemia, unspecified (principal)
CPT/HCPCS: 36415; 80061

== ENCOUNTER → 2023-03-05 | Outpatient (CLI) | payer MEDICARE, OTHER, SELFPAY ==
--- NOTE | 2023-03-05 08:42 | BI_ITS ---
MAMMOGRAPHY - BILATERAL SCREENING REASON FOR EXAM: Female, 72 years old. Routine annual screening examination. PERTINENT HISTORY: Non-contributory. TECHNIQUE: Digital bilateral breast tate (3D mammographic acquisition) in the CC and MLO projections. 2-D mediolateral oblique (MLO) and craniocaudad (CC) views of both breasts were obtained. CAD: Full Field Digital Mammography with Computer Added Detection was performed. COMPARISON: Comparison is made with prior study dated December 23, 2021 and April 13, 2020. FINDINGS: Breast Composition: The breasts are heterogeneously dense, which may obscure small masses. There are no dominant masses or suspicious calcifications. Stable small benign-appearing bilateral axillary lymph nodes. No other significant abnormalities are identified. There has been no significant change since the prior study. BI/SCRN MAMM (CAD)W/TATE BILAT IMPRESSION: Stable bilateral screening mammogram. Yearly follow-up mammogram recommended. (A) ASSESSMENT CATEGORY: BIRADS Category 2: Benign. A letter regarding these results will be sent to the patient by the facility within 30 days. Approximately 10% of breast cancers are not detected by mammography. A normal mammogram should not delay biopsy of a clinically suspicious abnormality. [id number] Electronically Signed: Joseph Yeung MD at 10:21 EDT ,
== END | disposition home or self-care (01) ==
LOC: OPBI 08:40
PROVIDERS: PCP Family Medicine; Referring Provider Family Medicine; Visit Provider Family Medicine
DX: Z12.31 Encounter for screening mammogram for malignant neoplasm of breast (principal)
CPT/HCPCS: 77063; 77067

== ENCOUNTER → 2023-04-15 | Outpatient (CLI) | payer MEDICARE, OTHER, SELFPAY ==
[2023-04-15 12:21] LABS: Absolute Lymphocyte Count 1.43 X10^3/uL (0.83-4.51); Absolute Neutrophil Count 1.6 X10^3/uL (2.0-7.7); Basophil# 0.02 X10^3/uL; Basophil% 0.6 % (0-1); Eosinophil# 0.09 X10^3/uL; Eosinophils% 2.5 % (0-5); Hematocrit 45.1 % (37-47); Hemoglobin 15.2 g/dL (12.0-15.0); Lymphocyte # 1.43 X10^3/ul (0.83-4.51); Lymphocyte % 39.5 % (19-41); Mean Corp Hgb Conc 33.7 g/dL (32-36); Mean Corpuscular Hgb 30.8 pg (27.0-32.0); Mean Corpuscular Volume 91.5 fL (81-99); Mean Platelet Vol. 9.3 fl (6.2-12.0); Monocyte# 0.49 X10^3/uL; Monocyte% 13.5 % (0-10); NRBC Flagged by Analyzer 0 % (0-5); Neutrophil # 1.58 X10^3/uL (2.7-7.7); Neutrophil % 43.6 % (47-70); Platelet Count 186 K/mm3 (150-450); RBC Distribution Width CV 12.1 % (11.6-14.6); RBC Distribution Width SD 40.4 fl (35.1-43.9); Red Blood Count 4.93 M/mm3 (4.2-5.4); White Blood Count 3.6 K/mm3 (4.4-11.0)
[2023-04-15 12:40] LABS: ALB/GLOB Ratio 1.2 RATIO (0.9-2.4); AST(SGOT) 26 U/L (15-37); Alanine Aminotransfer ALT/SGPT 23 U/L (13-56); Albumin, Serum 3.7 g/dL (3.2-5.0); Alkaline Phosphatase 63 U/L (45-117); Anion Gap 4 (5-15); BUN 13 mg/dL (7-18); Calcium,Total 8.7 mg/dL (8.5-10.1); Chloride 112 mmol/L (98-107); Cholesterol 151 mg/dL (200); Creatinine, Serum 0.62 mg/dL (0.55-1.02); EST Glomerular Filtration Rate 100 mL/min (>60); Est Glom Filt Rate - Afr Amer 121 mL/min (>60); Globulin 3.1 g/dL (2.2-4.2); Glucose 88 mg/dL (74-106); High Density Lipoprotein 77 mg/dL; Potassium 3.9 mmol/L (3.5-5.1); Protein, Total 6.8 g/dL (6.4-8.2); Sodium Level 144 mmol/L (136-145); T4 Free Direct 0.99 ng/dL (0.76-1.46); Thyroid Stim Hormone (TSH) 3.28 uIU/mL (0.358-3.74); Triglycerides 95 mg/dL; Very Low Density Lipoprotein 19 mg/dL (5-40)
== END | disposition home or self-care (01) ==
LOC: BFHLAB 09:03
PROVIDERS: PCP Family Medicine; Visit Provider Family Medicine
DX: I10 Essential (primary) hypertension (principal); E04.1 Nontoxic single thyroid nodule; E78.5 Hyperlipidemia, unspecified
CPT/HCPCS: 36415; 80053; 80061; 84439; 84443; 85025

== ENCOUNTER → 2024-07-06 | Outpatient (CLI) | payer MEDICARE, OTHER, SELFPAY ==
--- NOTE | 2024-07-06 10:40 | BI_ITS ---
MAMMOGRAPHY - BILATERAL SCREENING REASON FOR EXAM: Female, 74 years old. Routine annual screening examination. PERTINENT HISTORY: Non-contributory. TECHNIQUE: Digital bilateral breast tate (3D mammographic acquisition) in the CC and MLO projections. 2-D mediolateral oblique (MLO) and craniocaudad (CC) views of both breasts were obtained. CAD: Full Field Digital Mammography with Computer Added Detection was performed. COMPARISON: Comparison is made with prior study dated March 05, 2023 and December 23, 2021. FINDINGS: Breast Composition: The breasts are heterogeneously dense, which may obscure small masses. There are no dominant masses or suspicious calcifications. Stable small bilateral benign-appearing axillary lymph nodes. No other significant abnormalities are identified. There has been no significant change since the prior study. BI/SCRN MAMM (CAD)W/TATE BILAT IMPRESSION: Stable bilateral screening mammogram. Yearly follow-up mammogram recommended. (A) ASSESSMENT CATEGORY: BIRADS Category 2: Benign. A letter regarding these results will be sent to the patient by the facility within 30 days. Approximately 10% of breast cancers are not detected by mammography. A normal mammogram should not delay biopsy of a clinically suspicious abnormality. [id number] Electronically Signed: Joseph Yeung MD at 11:11 EST ,
== END | disposition home or self-care (01) ==
LOC: OPBI 10:38
PROVIDERS: PCP Family Medicine; Referring Provider Family Medicine; Visit Provider Family Medicine
DX: Z12.31 Encounter for screening mammogram for malignant neoplasm of breast (principal)
CPT/HCPCS: 77063; 77067

== ENCOUNTER → 2025-05-31 | Outpatient (CLI) | payer MEDICARE, OTHER, SELFPAY ==
[2025-05-31 12:35] LABS: Hematocrit 42.6 % (37-47); Hemoglobin 14.8 g/dL (12.0-15.0); Immature Granulocytes Count 0.010 X10^3/uL (0.0-0.0); Mean Corp Hgb Conc 34.7 g/dL (32-36); Mean Corpuscular Volume 93.8 fL (81-99); Mean Platelet Vol. 9.2 fl (6.2-12.0); NRBC Flagged by Analyzer 0 % (0-5); Platelet Count 235 K/mm3 (150-450); RBC Distribution Width CV 11.9 % (11.6-14.6); RBC Distribution Width SD 40.9 fl (35.1-43.9); Red Blood Count 4.54 M/mm3 (4.2-5.4); White Blood Count 4.7 K/mm3 (4.4-11.0)
[2025-05-31 12:49] LABS: AST(SGOT) 25 U/L (<=31); Alanine Aminotransfer ALT/SGPT 14 U/L (<=34); Albumin, Serum 4.3 g/dL (3.4-4.8); Alkaline Phosphatase 61 U/L (35-104); Anion Gap 10 (5-15); BUN 15 mg/dL (4-19); BUN/Creat Ratio 23.9 RATIO (10-20); Calcium,Total 9.3 mg/dL (7.6-11.0); Carbon Dioxide 27.9 mmol/L (21.0-32.0); Chloride 105 mmol/L (98-108); Cholesterol 174 mg/dL (<=200); Globulin 2.5 g/dL (2.2-4.2); Glucose 90 mg/dL (70-99); Low Density Lipoprotein Calc. 89 mg/dL; Potassium 4.4 mmol/L (3.3-5.1); Triglycerides 138 mg/dL; Very Low Density Lipoprotein 28 mg/dL (5-40); cholesterol:hdl ratio screen 2.87
== END | disposition home or self-care (01) ==
LOC: BFHLAB 10:17
PROVIDERS: PCP Family Medicine; Visit Provider Family Medicine
DX: Z00.00 Encounter for general adult medical examination without abnormal findings (principal); E78.5 Hyperlipidemia, unspecified
CPT/HCPCS: 36415; 80053; 80061; 85025